=== PATIENT | male | born 1960 | race American Indian/Alaskan Native ===

== ENCOUNTER 2017-09-06 13:24 | Emergency (ER) | payer OTHER ==
[2017-09-06 13:25] VITALS: BMI 22.8
[2017-09-06 13:40] VITALS: RESP 20
--- NOTE | 2017-09-06 14:25 | C.PDOC ---
History Of Present Illness 57 y/o male presenting with L upper epigastric pain for 3 days. He reports that the pain starts in the L side and radiates to the R. He reports that it is a wave like pain. He reports that he has previously had this pain and it is exacerbated by drinking. Admits to drink today. Denies shortness of breath, fever. cough, uri symptoms. Reports nausea, but denies diarrhea or abdominal pain. No palpitations, diaphoresis, lower leg swelling. Time Seen by Provider: 09/06/17 14:18 Chief Complaint (Nursing): Chest Pain History Per: Patient History/Exam Limitations: no limitations Onset/Duration Of Symptoms: Days (3) Current Symptoms Are (Timing): Still Present Severity: Mild Quality: "Pain" Recent travel outside of the [place]: No Additional History Per: Patient Past Medical History Reviewed: Historical Data, Nursing Documentation, Vital Signs Vital Signs: Last Vital Signs Temp 97.9 F 09/06/17 16:12 Pulse 84 09/06/17 16:12 Resp 20 09/06/17 16:12 BP 162/94 H 09/06/17 16:12 Pulse Ox 100 09/06/17 16:12 - Medical History PMH: Depression, HTN, Malignancy (LEFT LUNG), Peripheral Edema Denies: Chronic Kidney Disease Surgical History: - [facility] Procedures ALCOHOL DETOXIFICATION (09/25/13) CLOSED [PERCUTANEOUS] [NEEDLE] BIOPSY OF LUNG (04/30/14) INSERTION OF TOTALLY IMPLANTABLE VASC ACCESS DEVIC (08/19/14) OTHER LOBECTOMY OF LUNG (06/17/14) SIMP EXC LYMPH STRUC NEC (06/17/14) Family History: States: Unknown Family Hx - Social History Hx Tobacco Use: Yes Hx Alcohol Use: Yes Hx Substance Use: No - Immunization History Hx Tetanus Toxoid Vaccination: No Hx Influenza Vaccination: No Hx Pneumococcal Vaccination: Yes Review Of Systems Except As Marked, All Systems Reviewed And Found Negative. Constitutional: Negative for: Fever, Chills, Sweats Cardiovascular: Negative for: Palpitations Respiratory: Negative for: Cough, Shortness of Breath, SOB with Excertion, Wheezing Gastrointestinal: Positive for: Nausea, Abdominal Pain (upper L epigastric). Negative for: Vomiting, Diarrhea, Constipation Genitourinary: Negative for: Dysuria, Frequency, Incontinence, Hematuria, Penile Discharge Musculoskeletal: Negative for: Neck Pain, Back Pain, Leg Pain, Foot Pain Skin: Negative for: Rash Neurological: Negative for: Weakness, Numbness, Altered Mental Status Psych: Negative for: Anxiety Physical Exam - Physical Exam Appears: Well, Non-toxic, No Acute Distress Skin: Warm, Dry, No Rash Head: Atraumatic, Normacephalic Eye(s): bilateral: Normal Inspection, PERRL, EOMI Oral Mucosa: Moist Neck: Supple Chest: Symmetrical Cardiovascular: Rhythm Regular, No Murmur Respiratory: Normal Breath Sounds, No Rales, No Rhonchi, No Wheezing Gastrointestinal/Abdominal: Soft, No Tenderness Back: No CVA Tenderness Extremity: Normal ROM (x4), No Pedal Edema Neurological/Psych: Oriented x3 ED Course And Treatment - Laboratory Results Result Diagrams: 09/06/17 14:53 09/06/17 14:53 ECG: Interpreted By Me, Viewed By Me ECG Rhythm: Sinus Rhythm ECG Interpretation: Normal Interpretation Of ECG: No ST wave changes Rate From EC O2 Sat by Pulse Oximetry: 98 (RA) Pulse Ox Interpretation: Normal Medical Decision Making Medical Decision Making: Patient has normal physical exam. He is AAox3 but admits to alcohol use today. Plans: * ECG * Blood labs * CXR * Aspirin EKG shows NSR at 90bpm with normal intervals and no ST changes 3:58PM Cxray negative. Trop x 1 negative. Patient was ordered Mag as his Mag was low. He reports that he has home Mg replacement and did not take it today. He reports that he will go home and take it immediately. He reports that he does not want to stay in ED. Pain has been intermittent x 3 days and was associated with nausea. It is atypical and he reports that he will follow-up with PMD. Disposition - Disposition Disposition: HOME/ ROUTINE Disposition Time: 15:58 Condition: GOOD Additional Instructions: Follow-up with PMD within 2 days. Return to ED if condition worsens. Forms: [employer] [facility] (Palestinian) - Clinical Impression Clinical Impression: Chest pain - Scribe Statement The provider has reviewed the documentation as recorded by the Scribe Chase diego All medical record entries made by the Scribe were at my direction and personally dictated by me. I have reviewed the chart and agree that the record accurately reflects my personal performance of the history, physical exam, medical decision making, and the department course for this patient. I have also personally directed, reviewed, and agree with the discharge instructions and disposition.
[2017-09-06 14:58] LABS: BASO % 0.5 % (0.0-2.0); EOS # 0.1 K/uL (0.0-0.7); EOS % 0.8 % (0.0-4.0); HEMATOCRIT 39.8 % (35.0-51.0); LYMPH # 2.3 K/uL (1.0-4.3); MEAN CELL VOLUME 108.5 fL (80.0-94.0); MEAN CORPUSCULAR HEMOGLOBIN 36.4 pg (27.0-31.0); MEAN CORPUSCULAR HGB CONC 33.6 g/dL (33.0-37.0); MEAN PLATELET VOLUME 7.6 fL (7.2-11.7); MONO # 0.6 K/uL (0.0-0.8); MONO % 7.2 % (0.0-10.0); NRBC % 0.1 % (0.0-2.0); RED CELL DISTRIBUTION WIDTH 14.3 % (11.5-14.5); WHITE BLOOD COUNT 8.3 K/uL (4.8-10.8)
[2017-09-06 15:06] LABS: CHLORIDE 104 mmol/L (98-107); SODIUM 139 mmol/L (132-148)
[2017-09-06 15:07] LABS: POTASSIUM 3.8 mmol/L (3.6-5.2)
[2017-09-06 15:09] LABS: ALKALINE PHOSPHATASE 83 U/L (38-126); ALT/SGPT 54 U/L (21-72); AST/SGOT 73 U/L (17-59); BILIRUBIN,TOTAL 0.6 mg/dL (0.2-1.3); BLOOD UREA NITROGEN 13 mg/dL (9-20); CARBON DIOXIDE 22 mmol/L (22-30); GFR AFRICAN-AMERICAN > 60; GLUCOSE,RANDOM 95 mg/dL (75-110); PHOSPHOROUS 3.2 mg/dL (2.5-4.5); TOTAL PROTEIN 8.3 g/dL (6.3-8.3)
[2017-09-06 15:10] LABS: CALCIUM 9.2 mg/dl (8.6-10.4); MAGNESIUM 1.1 mg/dL (1.6-2.3)
[2017-09-06] MEDS ORDERED: Magnesium Sulfate 1 gm in D5W 1 GM/100 ML BAG IVPB ONE (15:11)
--- NOTE | 2017-09-06 16:12 | RAD ---
HISTORY: chest pain COMPARISON: 07/14/2016 TECHNIQUE: Chest PA and lateral FINDINGS: LUNGS: No active pulmonary disease. PLEURA: No significant pleural effusion identified. No pneumothorax apparent. CARDIOVASCULAR: Normal heart size. Left central venous infusion port. No congestive change. OSSEOUS STRUCTURES: No significant abnormalities. VISUALIZED UPPER ABDOMEN: Normal. OTHER FINDINGS: None. IMPRESSION: No active disease.
[2017-09-06 16:13] VITALS: BP 162/94; PULSE 84; TEMP 97.9
[2017-09-06 16:29] VITALS: O2SAT 98
--- NOTE | 2017-09-08 16:48 | CARD ---
APPROVED REPORT EKG Measurement Heart [id number] <Conclusion> Normal sinus rhythm Normal Electrocardiogram
== END 2017-09-06 16:22 | disposition home or self-care (01) ==
LOC: C.ER 13:24
DX: R07.9 Chest pain, unspecified (principal)

== ENCOUNTER 2017-11-15 11:00 | Inpatient (IN) | payer MEDICAID, OTHER ==
[2017-11-15 11:00] VITALS: BMI 22.8
--- NOTE | 2017-11-15 11:50 | C.PDOC ---
History Of Present Illness 57 y/o male with PMHx of lung cancer presents to ED requesting ETOH detox and with complains of constipation "for a few days". Patient states he had surgery in the past and reports he still smokes. Patient denies fever, chills, sob, abdominal pain, back pain or any other complaints at this time. Time Seen by Provider: 11/15/17 11:29 Chief Complaint (Nursing): Substance Abuse History Per: Patient History/Exam Limitations: no limitations Onset/Duration Of Symptoms: Days Current Symptoms Are (Timing): Still Present Suicide/Self Injury Attempted (Context): None Modifying Factor(s): Alcohol Past Medical History Reviewed: Historical Data, Nursing Documentation, Vital Signs Vital Signs: Last Vital Signs Temp 98.8 F 11/15/17 14:13 Pulse 104 H 11/15/17 14:13 Resp 18 11/15/17 14:13 BP 101/65 11/15/17 14:13 Pulse Ox 97 11/15/17 14:13 - Medical History PMH: Depression, HTN, Malignancy (LEFT LUNG), Peripheral Edema Surgical History: Other Surgeries: lung surgery - [facility] Procedures ALCOHOL DETOXIFICATION (09/25/13) CLOSED [PERCUTANEOUS] [NEEDLE] BIOPSY OF LUNG (04/30/14) INSERTION OF TOTALLY IMPLANTABLE VASC ACCESS DEVIC (08/19/14) OTHER LOBECTOMY OF LUNG (06/17/14) SIMP EXC LYMPH STRUC NEC (06/17/14) Family History: States: No Known Family Hx - Social History Hx Tobacco Use: Yes Hx Alcohol Use: Yes Hx Substance Use: Yes - Immunization History Hx Tetanus Toxoid Vaccination: No Hx Influenza Vaccination: No Hx Pneumococcal Vaccination: Yes (2014) Review Of Systems Constitutional: Negative for: Fever, Chills Cardiovascular: Negative for: Chest Pain Respiratory: Negative for: Shortness of Breath Gastrointestinal: Positive for: Constipation. Negative for: Nausea, Vomiting Musculoskeletal: Negative for: Back Pain Skin: Negative for: Rash Physical Exam - Physical Exam Appears: Non-toxic, No Acute Distress Skin: Normal Color, Warm, Dry, No Rash Head: Atraumatic, Normacephalic Oral Mucosa: Moist Neck: Normal ROM, Supple Cardiovascular: Rhythm Regular Respiratory: Normal Breath Sounds, No Rales, No Rhonchi, No Wheezing Gastrointestinal/Abdominal: Soft, No Tenderness, No Guarding, No Rebound Extremity: Normal ROM, Capillary Refill (<2 seconds) Neurological/Psych: Oriented x3 Gait: Steady ED Course And Treatment - Laboratory Results Result Diagrams: 11/15/17 11:49 11/15/17 11:49 Lab Interpretation: Normal O2 Sat by Pulse Oximetry: 100 (RA) Pulse Ox Interpretation: Normal Progress Note: Case discussed and patient evaluated by automotive tire worker who discussed with refrigeration installer psych. Patient in no distress, last drink this am Reassessment Condition: Unchanged - Physician Consult Information Physician Contacted: Dionne Reese Outcome Of Conversation: admit Medical Decision Making Medical Decision Making: Plan: Blood work, UA Spoke to crisis, will evaluate patient at bedside Disposition Discussed With Dr.: Dionne Reese Doctor Will See Patient In The: Hospital - Disposition Disposition: HOSPITALIZED Disposition Time: 14:00 Condition: STABLE Forms: [facility] (Polish) - POA Present On Arrival: None - Clinical Impression Clinical Impression: Alcohol dependence - PA / MARINE PILOT / Resident Statement MD/DO has reviewed & agrees with the documentation as recorded. - Scribe Statement The provider has reviewed the documentation as recorded by the Scribnestor Hathaway All medical record entries made by the Kemiibnestor were at my direction and personally dictated by me. I have reviewed the chart and agree that the record accurately reflects my personal performance of the history, physical exam, medical decision making, and the department course for this patient. I have also personally directed, reviewed, and agree with the discharge instructions and disposition. Decision To Admit - Pt Status Changed To: Hospital Disposition Of: Inpatient - Admit Certification Admit to Inpatient:: After my assessment, the patient will require hospitalization for at least two midnights. This is because of the severity of symptoms shown, intensity of services needed, and/or the medical risk in this patient being treated as an outpatient. - InPatient: Physician Admission Certification: I certify that this patient requires 2 or more midnights of care for the following reason:: alcohol dependence - . Bed Request Type: Detox Admitting Physician: Dionne Reese Patient Diagnosis: Alcohol dependence
[2017-11-15 11:52] LABS: BASO # 0.1 K/uL (0.0-0.2); EOS # 0.1 K/uL (0.0-0.7); HEMOGLOBIN 13.8 g/dL (12.0-18.0); LYMPH # 2.1 K/uL (1.0-4.3); LYMPH % 24.2 % (20.0-40.0); MEAN CORPUSCULAR HEMOGLOBIN 38.6 pg (27.0-31.0); MEAN CORPUSCULAR HGB CONC 34.6 g/dL (33.0-37.0); MONO # 0.7 K/uL (0.0-0.8); MONO % 7.5 % (0.0-10.0); NEUT # 5.8 K/uL (1.8-7.0); NEUT % 66.3 % (50.0-75.0); NRBC % 0.1 % (0.0-2.0); RBC 3.58 Mil/uL (4.40-5.90); RED CELL DISTRIBUTION WIDTH 14.3 % (11.5-14.5); WHITE BLOOD COUNT 8.7 K/uL (4.8-10.8)
[2017-11-15 11:54] LABS: MEAN CELL VOLUME 111.6 fL (80.0-94.0)
[2017-11-15 12:06] LABS: ALB/GLOB RATIO 1.4 (1.0-2.1); ALT/SGPT 55 U/L (21-72); AST/SGOT 92 U/L (17-59); BLOOD UREA NITROGEN 11 mg/dL (9-20); CALCIUM 7.5 mg/dl (8.6-10.4); GFR AFRICAN-AMERICAN > 60; GFR NON-AFRICAN AMERICAN 57
[2017-11-15 12:06] LABS: SQUAMOUS EPITHIAL < 1 /hpf (0-5); URINE BILIRUBIN NEGATIVE (NEGATIVE); URINE BLOOD NEGATIVE (NEGATIVE); URINE CLARITY Clear (Clear); URINE COLOR Yellow (YELLOW); URINE GLUCOSE (UA) 1+ mg/dL (Normal); URINE LEUKOCYTE ESTERASE NEG Leu/uL (Negative); URINE NITRATE NEGATIVE (NEGATIVE); URINE PROTEIN 2+ mg/dL (NEGATIVE); URINE UROBILINOGEN NORMAL mg/dL (0.2-1.0)
[2017-11-15 12:31] LABS: BARBITURATES, UR NEGATIVE (NEGATIVE); BENZODIAZEPINES, UR NEGATIVE (NEGATIVE); OPIATES, UR NEGATIVE (NEGATIVE); PHENCYCLIDINE, UR NEGATIVE (NEGATIVE)
--- NOTE | 2017-11-15 15:13 | PCM.BM ---
<J CarlosNichelleBarbara F - Last Filed: 11/15/17 15:11> Treatment Plan Problems - Problems identified on initial assessmt Alcohol use disorder Date Initiated: 11/15/17 Time Initiated: 15:00 Assessment reference: NA Status: Active Treatment assets and liabiliti Patient Assests: adapts well, cooperative, ADL independent Patient Liabilities: substance abuse, medical problems - Milieu Protocol Maintain good personal hygiene: daily Encourage regular showers, daily Remind patient to perform daily oral care, daily Assist patient to perform ADL's, every shift Encourage regular showers, every shift Remind patient to perform daily oral care, every shift Assist patient to perform ADL's Maintain personal safety: daily Educate patient to report safety concerns to staff, daily Monitor environment for contraband/sharps, every shift Educate patient to report safety concerns to staff, every shift Monitor environment for contraband/sharps Medication safety: Monitor for expected outcome, potential side effects: daily, every shift, Assess barriers to learning: daily, every shift, Assess readiness for medication education: daily, every shift <Charisma Lind - Last Filed: 11/16/17 13:39> Family Contact Family involvement: Family/SO is involved Family contact: Patient agrees to contact, Telephone contact initiated by staff Family contact name: Yumiko/girlfriend Family contacted how many times per week?: 3 - Goals for Treatment Patient goals for treatment: Complete detox and resume psychiatric care at [facility]. Discharge/Continuing Care - Education Needs Education Needs: Patient Medication, Patient Diagnosis/Disease Process, Patient Coping Skills, Patient Anger Management skills, Patient Placement options, Patient Community resources, Patient Activities of Daily Living - Discharge Discharge Criteria: No longer exhibiting s/s of withdrawal, Reduction of target symptoms Discharge to:: Home, With Family - Treatment Team Participation Patient/Family/SO Statement: 11/16/17 13:40 "I wanna go back to Dr. Hood. I was there 2 years ago but he really helped me. " Discussed with Family/SO: No Was Patient/Family/SO present at Treatment Team Meeting: Yes <Dionne Reese - Last Filed: 11/17/17 14:36> - Diagnosis (1) Alcohol dependence Status: Acute Interventions: 11/17/17 14:36 * Assess 7x/week regarding severity of withdrawal * Educate regarding risks, benefits, side effects and alternatives of medications * Use Motivational Interviewing for abstinence * Use CBT for relapse prevention * Medication management for withdrawal symptoms * Encourage medication assisted treatment *
[2017-11-15] MEDS: Multiple Vitamins Tab PO SCH (17:14)
[2017-11-16] MEDS: Multiple Vitamins Tab PO SCH (09:33)
[2017-11-16] MEDS ORDERED: Potassium Chloride 20 mEq ER Tab PO ONE (10:30)
[2017-11-16] MEDS: Magnesium Oxide 400 mg Tab UD PO SCH (11:26)
[2017-11-16] MEDS: Calcium Carbonate 500 mg Chewable Antacid Tab PO SCH ×2 (11:27→17:35)
--- NOTE | 2017-11-16 12:23 | PCM.PSYCH ---
Initial Psychiatric Evaluation - Initial Psychiatric Evaluation Type of Admission: Voluntary Legal Status: Capacity Chief Complaint (in patient's own words): "Alcohol!" History of Present Illness and Precipitating Events: The patient is seen, chart reviewed and case discussed. This is a 57-year-old -Emir[place] male, with one child who is an adult. The patient lives with his girlfriend who has no child in a social drinker. The patient is currently unemployed but he is on SSI because he had a lung cancer and had a surgery to 3 years ago. The patient is here for alcohol detox and he drinks up to 2 pints a day for the past 10 years at least he says. This is his third detox and he was in rehabilitation 1 time in [facility]. Other than rehabilitation, his longest sobriety was only 4 months. He never had seizures or DTs. He smokes up to one pack per day cigarettes even though he is a lung cancer survivor and lost one of his lungs. He also smokes marijuana occasionally. He denies other drugs He reports mild depressive and anxiety symptoms and he was use to go to [facility] and gets therapy and medications that. Past psych history: Outpatient treatment at [facility]. No admissions no suicide attempts. Family psych history: Denies Medical history: High blood pressure and cancer. Current Medications: Active Medications Generic Name Dose Route Start Last Admin Trade Name Freq PRN Reason Stop Dose Admin Albuterol 1 puff 11/15/17 20:15 Ventolin Hfa 90 Mcg/Actuation (8 G) INH RQ4 PRN SOB Amlodipine Besylate 5 mg 11/16/17 10:00 11/16/17 09:33 Norvasc PO 5 mg DAILY SARANYA Administration Calcium Carbonate 500 mg 11/16/17 10:30 11/16/17 11:27 Tums PO 500 mg BID SARANYA Administration Chlordiazepoxide 25 mg 11/15/17 18:00 11/16/17 11:30 Librium PO 11/19/17 17:59 25 mg Q6 SARANYA Administration Taper Chlordiazepoxide 25 mg 11/15/17 16:09 Librium PO Q4H PRN Alcohol Withdrawal Clonidine HCl 0.1 mg 11/15/17 16:09 Catapres PO Q4H PRN Symptoms of alcohol withdrawl Escitalopram Oxalate 5 mg 11/16/17 10:30 11/16/17 11:27 Lexapro PO 5 mg DAILY SARANYA Administration Folic Acid 1 mg 11/15/17 16:15 11/16/17 09:33 Folic Acid PO 1 mg DAILY SARANYA Administration Gabapentin 300 mg 11/15/17 18:00 11/16/17 09:33 Neurontin PO 300 mg TID SARANYA Administration Hydrochlorothiazide 25 mg 11/16/17 10:00 11/16/17 09:33 Hydrodiuril PO 25 mg DAILY SARANYA Administration Hydroxyzine HCl 50 mg 11/15/17 20:15 Atarax PO Q6H PRN Anxiety Magnesium Oxide 400 mg 11/16/17 10:45 11/16/17 11:26 Mag-Ox PO 400 mg DAILY SARANYA Administration Multivitamins 1 tab 11/15/17 16:15 11/16/17 09:33 Hexavitamin PO 1 tab DAILY SARANYA Administration Pneumococcal Polyvalent Vaccine 0.5 ml 11/18/17 10:00 Pneumovax 23 Vaccine IM 11/18/17 10:01 .ONCE ONE Thiamine HCl 100 mg 11/15/17 16:15 11/16/17 09:33 Vitamin B1 Tab PO 100 mg DAILY SARANYA Administration Trazodone HCl 100 mg 11/16/17 22:00 Desyrel PO HS PRN Insomnia Past Psychiatric History - Past Psychiatric History Previous Treatment History: Intensive Outpatient Pertinent Medical Hx (Current Medical&Sleep Prob, Allergies): Allergies Allergy/AdvReac Type Severity Reaction Status Date / Time cephalexin Allergy Severe ITCHING Verified 11/15/17 11:22 Albuterol HFA [Ventolin HFA 90 mcg/actuation (8 g)] 0.09 mg IH DAILY 06/15/16 Benazepril HCl 20 mg PO BID 06/15/16 Fluticasone Propionate [Flonase Allergy Relief] 50 mcg NS DAILY 06/15/16 Trazodone HCl 50 mg PO DAILY 06/15/16 amLODIPine [Norvasc] 5 mg PO DAILY 06/15/16 Hydrocodone/Acetaminophen [Hydrocodon-Acetaminophen 5-325] 1 each PO Q6 PRN #12 tablet 08/09/16 Folic Acid 1 mg PO DAILY 11/15/17 Lactulose 2 tbs PO DAILY 11/15/17 Magnesium Oxide [Mag-Ox] 400 mg PO DAILY 11/15/17 Omeprazole 40 mg PO DAILY 11/15/17 hydroCHLOROthiazide [Hydrodiuril] 25 mg PO DAILY 11/15/17 Review of Systems - Neurological Neurological: UNREMARKABLE - Psychiatric Psychiatric: Abnormal Sleep Pattern, Anxiety, Difficulty Concentrating. absent : Hallucinations, Homicidal Ideation, Paranoia, Suicidal Ideation Mental Status Examination - Personal Presentation Personal Presentation: Looks stated age - Affect Affect: Constricted - Motor Activity Motor Activity: Calm - Reliability in Providing Information Reliability in Providing Information: Good - Speech Speech: Organized - Mood Mood: Depressed, Anxious - Formal Thought Process Formal Thought Process: No Impairment - Cognitive Functions Orientation: Person, Place, Situation, Time Sensorium: Alert Attention/Concentration: Attentive Estimate of Intelligence: Average Judgement: Intact, as evidence by: Insight regarding need for hospitalization Memory: Recent intact, as evidence by: Ability to recall events of the day, Remote intact, as evidenced by: Abilit to recall sig. life events - Risk Risk: Withdrawal, Diminished functioning - Strength & Assets Inventory Strength & Assets Inventory: Cooperative - Limitations Limitations: Other DSM 5 DX - DSM 5 DSM 5 Diagnosis: Alcohol withdrawal Alcohol use d/o - severe Major depressive d/o - recurrent, moderate Anxiety d/o - unspecified Tobacco use d/o -severe cannabis use d/o - mild - Recommended/Plan of Treatment Treatment Recommendations and Plan of Treatment: Librium detox Gabapentin for augmentation Lexapro for depressive sxs As needed medications All risks, benefits and alternatives of the meds discussed, and the pt agreed and understood. Attend groups and activities Supportive therapy and psychoeducation [place] for abstinence CBT for relapse prevention Encourage MAT Refer to rehab or IOP, and self-help groups Smoking cessation with [place] Nicotine patch 34 min Projected ELOS: 4-5 days Prognosis: Good w treatment - Smoking Cessation Smoking Cessation Initiated: Yes
[2017-11-16] MEDS: Albuterol HFA 90 mcg/actuation (8 g) INH PRN (23:34)
[2017-11-17 08:21] LABS: ALB/GLOB RATIO 1.2 (1.0-2.1); ALBUMIN 3.4 g/dL (3.5-5.0); ALT/SGPT 42 U/L (21-72); AST/SGOT 68 U/L (17-59); BLOOD UREA NITROGEN 22 mg/dL (9-20); CALCIUM 8.1 mg/dl (8.6-10.4); GFR AFRICAN-AMERICAN > 60; GFR NON-AFRICAN AMERICAN 52; LIPASE 400 U/L (23-300); MAGNESIUM 1.3 mg/dL (1.6-2.3)
[2017-11-17] MEDS: Magnesium Oxide 400 mg Tab UD PO SCH (10:35)
[2017-11-17] MEDS: Calcium Carbonate 500 mg Chewable Antacid Tab PO SCH ×2 (10:35→17:14)
[2017-11-17] MEDS: Multiple Vitamins Tab PO SCH (10:41)
--- NOTE | 2017-11-17 12:51 | PCM.PYCHPN ---
Psychiatric Progress Note - Psychiatric Progress Note Patient seen today, length of contact: 16 min Patient Chief Complaint: "Better today" Problems Identified/Issues Discussed: The pt is seen, chart reviewed, case discussed with staff. The pt is compliant with medications and reports no side-effects. Symptoms are improving but needs more time to stabilize. After care discussed, support and psychoeducation given. Medication Change: Yes (detox changes daily) Medical Record Reviewed: Yes Mental Status Examination - Cognitive Function Orientation: Person, Place, Situation, Time Memory: Intact Attention: WNL Concentration: Poor Association: WNL Fund of Knowledge: WNL - Mood Mood: Depressed, Anxious - Affect Affect: Constricted - Speech Speech: Appropriate - Formal Thought Process Formal Thought Process: No Impairment - Suicidal Ideation Suicidal Ideation: No - Homicidal Ideation Homicidal Ideation: No Goal/Treatment Plan - Goal/Treatment Plan Need for Continued Stay: Discharge may exacerbated symptoms, Severe functional impairment Progress Toward Problem(s) and Goals/Treatment Plan: Librium detox Gabapentin for augmentation Lexapro for depressive sxs As needed medications All risks, benefits and alternatives of the meds discussed, and the pt agreed and understood. Attend groups and activities Supportive therapy and psychoeducation [place] for abstinence CBT for relapse prevention Encourage MAT Refer to rehab or IOP, and self-help groups Smoking cessation with [place] Nicotine patch
[2017-11-17] MEDS: Albuterol HFA 90 mcg/actuation (8 g) INH PRN (21:13)
[2017-11-18 08:48] LABS: ALB/GLOB RATIO 1.2 (1.0-2.1); ALBUMIN 3.8 g/dL (3.5-5.0); CALCIUM 9.1 mg/dl (8.6-10.4); MAGNESIUM 1.4 mg/dL (1.6-2.3)
[2017-11-18] MEDS: Multiple Vitamins Tab PO SCH (09:52)
[2017-11-18] MEDS: Magnesium Oxide 400 mg Tab UD PO SCH (09:54)
[2017-11-18] MEDS: Calcium Carbonate 500 mg Chewable Antacid Tab PO SCH ×2 (09:55→17:34)
[2017-11-18] MEDS ORDERED: Pneumococcal 23-Valent Vaccine IM ONE (10:00)
[2017-11-18] MEDS ORDERED: Influenza Vaccine 60 mcg/0.5 mL SYR (4YR UP) IM ONE (10:00)
--- NOTE | 2017-11-18 10:13 | PCM.PYCHPN ---
Psychiatric Progress Note - Psychiatric Progress Note Patient seen today, length of contact: 16 min Patient Chief Complaint: I am still withdrawing.' Problems Identified/Issues Discussed: Patient seen and evaluated, chart reviewed and discussed with the nurse. The patient reports improvement in his mood and reports improvement in withdrawal symptoms. He still reports anxiety, headaches and sweating. As per the nurse patient is improving. He denies any suicidal ideation or homicidal ideation. Patient is taking medications and denies any side effects. Symptoms are improving but needs more time for stabilization. Supportive therapy and psychoeducation were given. Medication Change: Yes (detox changes daily) Medical Record Reviewed: Yes Mental Status Examination - Cognitive Function Orientation: Person, Place, Situation, Time Memory: Intact Attention: WNL Concentration: Poor Association: WNL Fund of Knowledge: WNL - Mood Mood: Depressed, Anxious - Affect Affect: Constricted - Speech Speech: Appropriate - Formal Thought Process Formal Thought Process: No Impairment - Suicidal Ideation Suicidal Ideation: No - Homicidal Ideation Homicidal Ideation: No Goal/Treatment Plan - Goal/Treatment Plan Need for Continued Stay: Discharge may exacerbated symptoms, Severe functional impairment Progress Toward Problem(s) and Goals/Treatment Plan: Alcohol withdrawal Alcohol use d/o - severe Major depressive d/o - recurrent, moderate Anxiety d/o - unspecified Tobacco use d/o -severe cannabis use d/o - mild Librium detox Gabapentin for augmentation Lexapro for depressive sxs As needed medications All risks, benefits and alternatives of the meds discussed, and the pt agreed and understood. Attend groups and activities Supportive therapy and psychoeducation [place] for abstinence CBT for relapse prevention Encourage MAT Refer to rehab or IOP, and self-help groups Smoking cessation with [place] Nicotine patch - Smoking Cessation Smoking Cessation Initiated: Yes
[2017-11-18] MEDS: Albuterol HFA 90 mcg/actuation (8 g) INH PRN (21:43)
[2017-11-19] MEDS: Multiple Vitamins Tab PO SCH (09:44)
[2017-11-19] MEDS: Magnesium Oxide 400 mg Tab UD PO SCH (09:45)
[2017-11-19] MEDS: Calcium Carbonate 500 mg Chewable Antacid Tab PO SCH ×2 (09:46→17:43)
[2017-11-19] MEDS: Albuterol HFA 90 mcg/actuation (8 g) INH PRN ×2 (09:50→21:06)
--- NOTE | 2017-11-19 12:29 | PCM.PYCHPN ---
Psychiatric Progress Note - Psychiatric Progress Note Patient seen today, length of contact: 16 min Patient Chief Complaint: I am still withdrawing.' Problems Identified/Issues Discussed: Patient seen and evaluated, chart reviewed and discussed with the nurse. The patient reports improvement in his mood and reports improvement in withdrawal symptoms. He still reports anxiety, headaches and sweating. As per the nurse patient is improving. He denies any suicidal ideation or homicidal ideation. Patient is taking medications and denies any side effects. Symptoms are improving but needs more time for stabilization. Supportive therapy and psychoeducation were given. Medication Change: Yes (detox changes daily, start remeron) Medical Record Reviewed: Yes Mental Status Examination - Cognitive Function Orientation: Person, Place, Situation, Time Memory: Intact Attention: WNL Concentration: Poor Association: WNL Fund of Knowledge: WNL - Mood Mood: Depressed, Anxious - Affect Affect: Constricted - Speech Speech: Appropriate - Formal Thought Process Formal Thought Process: No Impairment - Suicidal Ideation Suicidal Ideation: No - Homicidal Ideation Homicidal Ideation: No Goal/Treatment Plan - Goal/Treatment Plan Need for Continued Stay: Discharge may exacerbated symptoms, Severe functional impairment Progress Toward Problem(s) and Goals/Treatment Plan: Alcohol withdrawal Alcohol use d/o - severe Major depressive d/o - recurrent, moderate Anxiety d/o - unspecified Tobacco use d/o -severe cannabis use d/o - mild Librium detox Start Remeron 15 mg PO Daily Gabapentin for augmentation Lexapro for depressive sxs As needed medications All risks, benefits and alternatives of the meds discussed, and the pt agreed and understood. Attend groups and activities Supportive therapy and psychoeducation [place] for abstinence CBT for relapse prevention Encourage MAT Refer to rehab or IOP, and self-help groups Smoking cessation with [place] Nicotine patch - Smoking Cessation Smoking Cessation Initiated: No
[2017-11-20] MEDS: Magnesium Oxide 400 mg Tab UD PO SCH (10:11)
[2017-11-20] MEDS: Calcium Carbonate 500 mg Chewable Antacid Tab PO SCH ×2 (10:11→17:06)
[2017-11-20] MEDS: Multiple Vitamins Tab PO SCH (10:12)
[2017-11-20 12:37] LABS: ALB/GLOB RATIO 1.2 (1.0-2.1); ALBUMIN 3.4 g/dL (3.5-5.0); CALCIUM 9.1 mg/dl (8.6-10.4); MAGNESIUM 1.4 mg/dL (1.6-2.3)
--- NOTE | 2017-11-20 13:22 | PCM.PYCHPN ---
Psychiatric Progress Note - Psychiatric Progress Note Patient seen today, length of contact: 16 min Patient Chief Complaint: "Tired" Problems Identified/Issues Discussed: The pt is seen, chart reviewed, case discussed with staff. Support given, CBT and [place] used briefly No new symptoms reported, except for fatigue His labs have worsened so internal medicine consulted. He has back pain and was taking Ibuprofen at times - d/c'ed Gabapentin was d/c'ed too He is encouraged to drink more water Improving slowly and needs more time No SEs from medications, risks discussed. After care discussed again. Medication Change: Yes (detox changes daily) Medical Record Reviewed: Yes Mental Status Examination - Cognitive Function Orientation: Person, Place, Situation, Time Memory: Intact Attention: WNL Concentration: Poor Association: WNL Fund of Knowledge: WNL - Mood Mood: Depressed, Anxious - Affect Affect: Constricted - Speech Speech: Appropriate - Formal Thought Process Formal Thought Process: No Impairment - Suicidal Ideation Suicidal Ideation: No - Homicidal Ideation Homicidal Ideation: No Goal/Treatment Plan - Goal/Treatment Plan Need for Continued Stay: Discharge may exacerbated symptoms, Severe functional impairment Progress Toward Problem(s) and Goals/Treatment Plan: Librium detox ending Lexapro for depressive sxs As needed medications denise stopped All risks, benefits and alternatives of the meds discussed, and the pt agreed and understood. Attend groups and activities Supportive therapy and psychoeducation [place] for abstinence CBT for relapse prevention Encourage MAT Refer to rehab or IOP, and self-help groups Smoking cessation with [place] Nicotine patch
[2017-11-20] MEDS ORDERED: Iohexol 240 (50 ml) PO ONE (16:45)
--- NOTE | 2017-11-20 16:56 | CP.PCM.CON ---
<Gianni Hylton - Last Filed: 11/20/17 18:35> History of Present Illness - History of Present Illness History of Present Illness: Medicine Consult note for Dr. Kelley Reason for consult: Increasing BUN/Creatinine and Amylase/Lipase This is a 57 year old male with PMHx lung cancer s/p resection and chemotherapy and hypertension who came to the hospital requesting detox from alcohol. Patient states that he will occasionally experience abdominal pain whenever he stops drinking but this is relieved with alcohol consumption. Eventually, patient decided to seek detox. His course in detox was uncomplicated except for increasing amylase, lipase, BUN, and creatinine. Patient denies abdominal pain, nausea, vomiting, constipation, diarrhea, change in stools, blood in stool. Patient states he is tolerating his diet well and bowel movements are normal. Patient's only complaints are generalized blurred vision, feels his head is foggy, and back pain worsened with prolonged standing and ambulation. Patient states that he was admitted to [facility] ago for kidney injury secondary to chemotherapy. His last chemotherapy session was about [address] Yuan. PMHx: lung cancer s/p resection (in June 2015) and chemotherapy, HTN PSHx: Resection of left lung cancer and lobectomy (per patient cancer was size of "grapefruit" Allergies: Cephalexin: Rxn is intense itching Social: Admits to drinking minimum 1 pint of cognac daily for last ten years. Current smoker since age 15. Used to smoke 2-3 ppd until cancer diagnosis. Then he dropped to 1/2-1 ppd after that. Denies drugs. 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 Family Hx: Father of multiple myeloma at age 68. PMD: Dr. Bryant Murray Home meds: As per EMR Review of Systems - Constitutional Constitutional: absent: Chills, Fever - EENT Eyes: Blurred Vision. absent: Other Visual Disturbances Nose/Mouth/Throat: absent: Nasal Congestion - Cardiovascular Cardiovascular: absent: Chest Pain - Respiratory Respiratory: absent: Dyspnea - Gastrointestinal Gastrointestinal: absent: Abdominal Pain, Constipation, Diarrhea, Nausea, Vomiting - Genitourinary Genitourinary: absent: Dysuria - Musculoskeletal Musculoskeletal: Back Pain - Integumentary Integumentary: absent: Rash - Neurological Neurological: Other (difficulty ambulating secondary to low back pain). absent : Weakness - Psychiatric Psychiatric: absent: Anxiety - Endocrine Endocrine: absent: Fatigue, Palpitations Past Patient History - Past Medical History & Family History Past Medical History?: Yes - Past Social History Smoking Status: Current Some Days Smoker - CARDIAC Hx Hypertension: Yes Hx Peripheral Edema: Yes - PULMONARY Hx Respiratory Disorders: Yes Hx Lung Cancer: Yes (hx lobectomy LT SIDE) - HEENT Hx HEENT Problems: Yes Other/Comment: SEASONAL ALLERGIES - RENAL Hx Chronic Kidney Disease: No - ENDOCRINE/METABOLIC Hx Endocrine Disorders: No - INTEGUMENTARY Hx Dermatological Problems: No - MUSCULOSKELETAL/RHEUMATOLOGICAL Hx Musculoskeletal Disorders: Yes Hx Falls: No Hx Osteoarthritis: Yes (KNEES, RIGHT SHOULDER) - PSYCHIATRIC Hx Substance Use: No - SURGICAL HISTORY Hx Surgeries: Yes Hx Pulmonary Surgery: Yes (left thoracotomy) Hx Vascular Access Device: Yes (portacath insertion right chest) Other/Comment: LUNG BX RECTAL ABSCESS 1990 CHEMO DONE - ANESTHESIA Hx Anesthesia: Yes Hx Anesthesia Reactions: No Hx Malignant Hyperthermia: No Meds Allergies/Adverse Reactions: Allergies Allergy/AdvReac Type Severity Reaction Status Date / Time cephalexin Allergy Severe ITCHING Verified 11/15/17 11:22 - Medications Medications: Current Medications Albuterol (Ventolin Hfa 90 Mcg/Actuation (8 G)) 1 puff INH RQ4 PRN PRN Reason: SOB Last Admin: 11/19/17 21:06 Dose: 1 puff Amlodipine Besylate (Norvasc) 5 mg PO DAILY [facility] Last Admin: 11/20/17 10:11 Dose: 5 mg Calcium Carbonate (Tums) 500 mg PO BID [facility] Last Admin: 11/20/17 10:11 Dose: 500 mg Chlordiazepoxide (Librium) 25 mg PO Q4H PRN PRN Reason: Alcohol Withdrawal Clonidine HCl (Catapres) 0.1 mg PO Q4H PRN PRN Reason: Symptoms of alcohol withdrawl Escitalopram Oxalate (Lexapro) 10 mg PO DAILY [facility] Last Admin: 11/20/17 10:11 Dose: 10 mg Folic Acid (Folic Acid) 1 mg PO DAILY [facility] Last Admin: 11/20/17 10:12 Dose: 1 mg Hydrochlorothiazide (Hydrodiuril) 25 mg PO DAILY [facility] Last Admin: 01/15/18 10:11 Dose: 25 mg Hydroxyzine HCl (Atarax) 50 mg PO Q6H PRN PRN Reason: Anxiety Magnesium Oxide (Mag-Ox) 400 mg PO DAILY [facility] Last Admin: 11/20/17 10:11 Dose: 400 mg Mirtazapine (Remeron) 15 mg PO HS [facility] Last Admin: 11/19/17 21:06 Dose: 15 mg Multivitamins (Hexavitamin) 1 tab PO DAILY [facility] Last Admin: 11/20/17 10:12 Dose: 1 tab Nicotine (Nicoderm Cq) 1 patch TD DAILY [facility] Last Admin: 11/20/17 10:12 Dose: 1 patch Thiamine HCl (Vitamin B1 Tab) 100 mg PO DAILY [facility] Last Admin: 11/20/17 10:11 Dose: 100 mg Trazodone HCl (Desyrel) 100 mg PO HS PRN PRN Reason: Insomnia Last Admin: 11/19/17 21:06 Dose: 100 mg Physical Exam - Constitutional Appears: No Acute Distress - Head Exam Head Exam: ATRAUMATIC, NORMOCEPHALIC - Eye Exam Eye Exam: EOMI, PERRL - ENT Exam ENT Exam: Mucous Membranes Moist - Respiratory Exam Respiratory Exam: Decreased Breath Sounds (left lung field), Clear to Auscultation Bilateral, NORMAL BREATHING PATTERN. absent: Rales, Rhonchi, Wheezes Additional comments: surgical scars on left lateral thorax - Cardiovascular Exam Cardiovascular Exam: REGULAR RHYTHM, +S1, +S2 - GI/Abdominal Exam GI & Abdominal Exam: Distended, Normal Bowel Sounds, Soft. absent: Guarding, Tenderness - Extremities Exam Extremities exam: Positive for: pedal pulses present. Negative for: pedal edema - Neurological Exam Neurological exam: Alert, CN II-XII Intact, Oriented x3 - Psychiatric Exam Psychiatric exam: Normal Affect, Normal Mood - Skin Skin Exam: Dry, Warm Results - Vital Signs Recent Vital Signs: Last Vital Signs Temp 98.1 F 11/20/17 16:10 Pulse 89 11/20/17 16:10 Resp 20 11/20/17 16:10 BP 108/73 11/20/17 16:10 Pulse Ox 98 11/20/17 16:10 - Labs Result Diagrams: 11/15/17 11:49 11/20/17 12:14 Labs: Laboratory Results - last 24 hr 11/20/17 12:14 Sodium 132 Potassium 4.5 Chloride 102 Carbon Dioxide 25 Anion Gap 9 L BUN 31 H Creatinine 1.7 H Est GFR ( Amer) 50 Est GFR (Non-Af Amer) 42 Random Glucose 127 H Calcium 9.1 Magnesium 1.4 L Total Bilirubin 0.4 AST 109 H ALT 70 Alkaline Phosphatase 87 Total Protein 6.2 L Albumin 3.4 L Globulin 2.8 Albumin/Globulin Ratio 1.2 Amylase 221 H Lipase 517 H Assessment & Plan - Assessment and Plan (Free Text) Plan: Alcohol Detox Management as per Psychiatry Patient on Librium taper which can explain slowly rising LFTs History of Hypertension Held home HCTZ as this can contribute to worsening renal function Elevated Amylase/Lipase Patient does not appear to have acute pancreatitis based on history and clinical exam. Per radiology, PO contrast recommended. CT abdomen/pelvis with PO contrast ordered to rule out chronic pancreatitis. F/ u result Will recheck levels in the morning labs Elevated BUN/Creatinine Patient instructed to consume 2-3 liters of fluids for now. Will recheck in the morning labs Case DW Dr. Warren Hylton PGY-1 <Priscilla Kelley - Last Filed: 11/21/17 17:43> Results - Vital Signs Recent Vital Signs: Last Vital Signs Temp 98.3 F 11/21/17 09:00 Pulse 79 11/21/17 09:00 Resp 18 11/21/17 09:00 BP 133/84 11/21/17 09:00 Pulse Ox 99 11/21/17 09:00 - Labs Result Diagrams: 11/21/17 07:22 11/21/17 07:22 Labs: Laboratory Results - last 24 hr 11/21/17 11/21/17 07:22 07:22 WBC 7.6 RBC 3.05 L Hgb 11.7 L D Hct 34.6 L MCV 113.5 H MCH 38.6 H MCHC 34.0 RDW 14.3 Plt Count 182 MPV 9.4 Neut % (Auto) 69.3 Lymph % (Auto) 17.1 L [place] % (Auto) 11.5 H Eos % (Auto) 1.6 Baso % (Auto) 0.5 Neut # 5.3 Lymph # 1.3 [place] # 0.9 H Eos # 0.1 Baso # 0.0 Sodium 134 Potassium 5.0 Chloride 104 Carbon Dioxide 22 Anion Gap 13 BUN 26 H Creatinine 1.4 Est GFR ( Amer) > 60 Est GFR (Non-Af Amer) 52 Random Glucose 103 Calcium 9.4 Total Bilirubin 0.4 AST 102 H ALT 81 H Alkaline Phosphatase 92 Total Protein 6.6 Albumin 3.5 Globulin 3.1 Albumin/Globulin Ratio 1.1 Amylase 209 H Lipase 406 H Attending/Attestation - Attestation I have personally seen and examined this patient.: Yes I have fully participated in the care of the patient.: Yes I have reviewed all pertinent clinical information: Yes Notes (Text): patient was seen and examined. discussed with the resident He agreed to increase his fluid intake as recommended follow creatinine patient wasnt to go home tomorrow Asked to follow his primary care physician and increase his water intake We will sign off if his creatinine improves
--- NOTE | 2017-11-20 20:01 | CT ---
EXAM: CT Abdomen and Pelvis With Intravenous Contrast EXAM DATE/TIME: Exam ordered 11/20/2017 4:35 PM CLINICAL HISTORY: 57 years old, male; Abnormal findings; Abnormal lab test; Elevated amylase and elevated lipase; Additional info: Elevated amylase, lipase. R/O pancreatitis TECHNIQUE: Axial computed tomography images of the abdomen and pelvis with intravenous contrast. All CT scans at this facility use one or more dose reduction techniques, viz.: automated exposure control; ma/kV adjustment per patient size (including targeted exams where dose is matched to indication; i.e. head); or iterative reconstruction technique. Coronal and sagittal reformatted images were created and reviewed. CONTRAST: 100 mL of visipaque 320 administered intravenously. COMPARISON: No relevant prior studies available. FINDINGS: Lower thorax: Paraseptal type emphysema is seen at the left lung base. Discoid atelectasis or scar is seen in the left lower lobe the liver is low in density. ABDOMEN: Liver:A 1.6 cm low density lesion is seen in the anterosuperior segment of the right lobe of the liver with a density measuring up to 3 H. Gallbladder and bile ducts: Unremarkable. No calcified stones. No ductal dilation. Pancreas: Unremarkable. No mass. No ductal dilation. Spleen: Unremarkable. No splenomegaly. Adrenals: Unremarkable. No mass. Kidneys and ureters: A 1.3 cm lesion in projects off the midportion left kidney laterally with a density measurement of 23H No hydronephrosis. Stomach and bowel: There are scattered colonic diverticula. No obstruction. No mucosal thickening. Appendix: No findings to suggest acute appendicitis. PELVIS: Bladder: Unremarkable. No mass. Reproductive: Unremarkable as visualized. ABDOMEN and PELVIS: Intraperitoneal space: Unremarkable. No free air. No significant fluid collection. Bones/joints: No acute fracture. No dislocation. Soft tissues: Hazy and density is noted within the mesenteric fat Vasculature: Unremarkable. No abdominal aortic aneurysm. Lymph nodes: There is stranding of the fat in the yonatan hepatis. Lymph nodes are noted within the lesser sac. The largest measures 2.4 x 1.3 x or 1 cm. IMPRESSION: 1. Stranding of the mesenteric fat extending superiorly into the yonatan hepatis. The findings could be consistent with a mild pancreatitis. Mesenteric adenitis is another consideration. 2. Scattered colonic diverticula. 3. Hepatic steatosis 4. Low-density liver lesion. This was mentioned on the CT scan dated . Those films are not available for comparison. 5. Hyperdense left renal mass not fully characterized without contrast. Comparison with old films suggested. Alternatively ultrasound might be helpful.
[2017-11-20] MEDS: Albuterol HFA 90 mcg/actuation (8 g) INH PRN (21:24)
[2017-11-20 21:33] VITALS: RESP 18
[2017-11-21 07:39] LABS: BASO % 0.5 % (0.0-2.0); EOS # 0.1 K/uL (0.0-0.7); EOS % 1.6 % (0.0-4.0); LYMPH # 1.3 K/uL (1.0-4.3); LYMPH % 17.1 % (20.0-40.0); MEAN CELL VOLUME 113.5 fL (80.0-94.0); MEAN CORPUSCULAR HEMOGLOBIN 38.6 pg (27.0-31.0); MEAN PLATELET VOLUME 9.4 fL (7.2-11.7); MONO # 0.9 K/uL (0.0-0.8); MONO % 11.5 % (0.0-10.0); NEUT # 5.3 K/uL (1.8-7.0); NEUT % 69.3 % (50.0-75.0); RBC 3.05 Mil/uL (4.40-5.90); RED CELL DISTRIBUTION WIDTH 14.3 % (11.5-14.5); WHITE BLOOD COUNT 7.6 K/uL (4.8-10.8)
[2017-11-21 07:50] LABS: LIPASE 406 U/L (23-300)
--- NOTE | 2017-11-21 07:51 | CP.PCM.PN ---
<Gianni Hylton - Last Filed: 11/21/17 13:07> Subjective - Date & Time of Evaluation Date of Evaluation: 11/21/17 Time of Evaluation: 09:00 - Subjective Subjective: Medicine progress note for Dr. Kelley Patient seen and examined. Patient reports no acute complaints except for feeling tired. He tolerated diet and oral hydration well. Objective - Vital Signs/Intake and Output Vital Signs (last 24 hours): Temp Pulse Resp BP Pulse Ox 98.0 F 83 18 121/80 97 11/21/17 06:29 11/21/17 06:29 11/21/17 06:29 11/21/17 06:29 11/21/17 06:29 - Medications Medications: Current Medications Albuterol (Ventolin Hfa 90 Mcg/Actuation (8 G)) 1 puff INH RQ4 PRN PRN Reason: SOB Last Admin: 11/20/17 21:24 Dose: 1 puff Amlodipine Besylate (Norvasc) 5 mg PO DAILY [facility] Last Admin: 11/20/17 10:11 Dose: 5 mg Calcium Carbonate (Tums) 500 mg PO BID [facility] Last Admin: 11/20/17 17:06 Dose: 500 mg Chlordiazepoxide (Librium) 25 mg PO Q4H PRN PRN Reason: Alcohol Withdrawal Clonidine HCl (Catapres) 0.1 mg PO Q4H PRN PRN Reason: Symptoms of alcohol withdrawl Escitalopram Oxalate (Lexapro) 10 mg PO DAILY [facility] Last Admin: 11/20/17 10:11 Dose: 10 mg Folic Acid (Folic Acid) 1 mg PO DAILY [facility] Last Admin: 11/20/17 10:12 Dose: 1 mg Hydrochlorothiazide (Hydrodiuril) 25 mg PO DAILY [facility] Last Admin: 11/20/17 10:11 Dose: 25 mg Hydroxyzine HCl (Atarax) 50 mg PO Q6H PRN PRN Reason: Anxiety Magnesium Oxide (Mag-Ox) 400 mg PO DAILY [facility] Last Admin: 11/20/17 10:11 Dose: 400 mg Mirtazapine (Remeron) 15 mg PO HS [facility] Last Admin: 11/20/17 21:23 Dose: 15 mg Multivitamins (Hexavitamin) 1 tab PO DAILY [facility] Last Admin: 11/20/17 10:12 Dose: 1 tab Nicotine (Nicoderm Cq) 1 patch TD DAILY [facility] Last Admin: 11/20/17 10:12 Dose: 1 patch Thiamine HCl (Vitamin B1 Tab) 100 mg PO DAILY [facility] Last Admin: 11/20/17 10:11 Dose: 100 mg Trazodone HCl (Desyrel) 100 mg PO HS PRN PRN Reason: Insomnia Last Admin: 11/20/17 21:23 Dose: 100 mg - Labs Labs: 11/15/17 11:49 - Additional Findings Additional findings: - Constitutional Appears: No Acute Distress - Head Exam Head Exam: ATRAUMATIC, NORMOCEPHALIC - Eye Exam Eye Exam: EOMI, PERRL - ENT Exam ENT Exam: Mucous Membranes Moist - Respiratory Exam Respiratory Exam: Decreased Breath Sounds (left lung field), Clear to Auscultation Bilateral, NORMAL BREATHING PATTERN. absent: Rales, Rhonchi, Wheezes Additional comments: surgical scars on left lateral thorax - Cardiovascular Exam Cardiovascular Exam: REGULAR RHYTHM, +S1, +S2 - GI/Abdominal Exam GI & Abdominal Exam: Distended, Normal Bowel Sounds, Soft. absent: Guarding, Tenderness - Extremities Exam Extremities exam: Positive for: pedal pulses present. Negative for: pedal edema - Neurological Exam Neurological exam: Alert, CN II-XII Intact, Oriented x3 - Psychiatric Exam Psychiatric exam: Normal Affect, Normal Mood - Skin Skin Exam: Dry, Warm Assessment and Plan - Assessment and Plan (Free Text) Plan: Alcohol Detox Management as per Psychiatry Patient on Librium taper which can explain slowly rising LFTs History of Hypertension Held home HCTZ as this can contribute to worsening renal function Elevated Amylase/Lipase Patient does not appear to have acute pancreatitis based on history and clinical exam. Per radiology, PO contrast recommended. CT abdomen/pelvis with PO contrast: * 1. Stranding of the mesenteric fat extending superiorly into the yonatan hepatis. The findings could be consistent with a mild pancreatitis. Mesenteric adenitis is another consideration.--addendum of CT reveals this is unchanged from prior scan * 2. Scattered colonic diverticula. * 3. Hepatic steatosis * 4. Low-density liver lesion. This was mentioned on the CT scan dated 2011. Those films are not available for comparison. * 5. Hyperdense left renal mass not fully characterized without contrast. Amylase and Lipase downtrending Elevated BUN/Creatinine Patient instructed to consume 2-3 liters of fluids for now. Downtrending with oral hydration Disposition: Patient is set for discharge today per psychiatry. CT scan showed chronic pathologies without evidence of acute pancreatitis. Patient was instructed to follow up his abnormal labs with his primary Dr. Murray within the next 2-3 days and to maintain adequate hydration. Patient verbalized understanding and stated that he can get an appointment to be seen soon. HCTZ to be held until he sees Dr. Murray. Abnormal lab studies to be followed up on were typed out and given to the patient. Patient also instructed for outpatient follow up on his renal lesion as well with his primary. Case DW Dr. Warren Hylton PGY-1 <Priscilla Kelley - Last Filed: 11/21/17 17:45> Objective - Vital Signs/Intake and Output Vital Signs (last 24 hours): Temp Pulse Resp BP Pulse Ox 98.3 F 79 18 133/84 99 11/21/17 09:00 11/21/17 09:00 11/21/17 09:00 11/21/17 09:00 11/21/17 09:00 - Labs Labs: 11/21/17 07:22 11/21/17 07:22 Attending/Attestation - Attestation I have personally seen and examined this patient.: Yes I have fully participated in the care of the patient.: Yes I have reviewed all pertinent clinical information, including history, physical exam and plan: Yes Notes (Text): His creatinine improved with water intake,amylase and lipase is trending down.we will sign off recommend to follow his primary care physician
[2017-11-21 08:08] LABS: ALB/GLOB RATIO 1.1 (1.0-2.1); ALBUMIN 3.5 g/dL (3.5-5.0); ALT/SGPT 81 U/L (21-72); AMYLASE 209 U/L (30-110); AST/SGOT 102 U/L (17-59); BLOOD UREA NITROGEN 26 mg/dL (9-20); CALCIUM 9.4 mg/dl (8.6-10.4); GFR AFRICAN-AMERICAN > 60; GFR NON-AFRICAN AMERICAN 52
[2017-11-21 08:19] LABS: HEMOGLOBIN 11.7 g/dL (12.0-18.0)
[2017-11-21] MEDS: Magnesium Oxide 400 mg Tab UD PO SCH (10:06)
[2017-11-21] MEDS: Multiple Vitamins Tab PO SCH (10:06)
[2017-11-21] MEDS: Calcium Carbonate 500 mg Chewable Antacid Tab PO SCH (10:07)
--- NOTE | 2017-11-21 10:21 | PCM.PYCHDC ---
Mental Status Examination - Mental Status Examination Orientation: Person Discharge Summary - Discharge Note Laboratory Data: Abnormal Lab Results 11/20/17 11/21/17 11/21/17 12:14 07:22 07:22 WBC 7.6 RBC 3.05 L Hgb 11.7 L D Hct 34.6 L MCV 113.5 H MCH 38.6 H MCHC 34.0 RDW 14.3 Plt Count 182 MPV 9.4 Neut % (Auto) 69.3 Lymph % (Auto) 17.1 L [place] % (Auto) 11.5 H Eos % (Auto) 1.6 Baso % (Auto) 0.5 Neut # 5.3 Lymph # 1.3 [place] # 0.9 H Eos # 0.1 Baso # 0.0 Sodium 132 134 Potassium 4.5 5.0 Chloride 102 104 Carbon Dioxide 25 22 Anion Gap 9 L 13 BUN 31 H 26 H Creatinine 1.7 H 1.4 Est GFR ( Amer) 50 > 60 Est GFR (Non-Af Amer) 42 52 Random Glucose 127 H 103 Calcium 9.1 9.4 Magnesium 1.4 L Total Bilirubin 0.4 0.4 AST 109 H 102 H ALT 70 81 H Alkaline Phosphatase 87 92 Total Protein 6.2 L 6.6 Albumin 3.4 L 3.5 Globulin 2.8 3.1 Albumin/Globulin Ratio 1.2 1.1 Amylase 221 H 209 H Lipase 517 H 406 H Consultations:: List each consultation separately and include: 1. Reason for request. 2. Findings. 3. Follow-up Summary of Hospital Course include:: 1. Description of specific treatment plan utilized for patients during their course of treatmen. 2. Summarize the time- course for resolution of acute symptoms and/or regressed behaviors. 3. Describe issues identified and worked on during hospitalization. 4. Describe medication utilized. 5. Describe medical problems identified and treated. 6. Reassessment of suicide risk Summary of Hospital Course: The patient is seen, chart reviewed and case discussed. This is a 57-year-old -[place] male, with one child who is an adult. The patient lives with his girlfriend who has no child in a social drinker. The patient is currently unemployed but he is on SSI because he had a lung cancer and had a surgery to 3 years ago. The patient is here for alcohol detox and he drinks up to 2 pints a day for the past 10 years at least he says. This is his third detox and he was in rehabilitation 1 [place]. Other than rehabilitation, his longest sobriety was only 4 months. He never had seizures or DTs. He smokes up to one pack per day cigarettes even though he is a lung cancer survivor and lost one of his lungs. He also smokes marijuana occasionally. He denies other drugs He reports mild depressive and anxiety symptoms and he was use to go to [facility] and gets therapy and medications that. Past psych history: Outpatient treatment at [facility]. No admissions no suicide attempts. Family psych history: Denies Medical history: High blood pressure and cancer. - Diagnosis (1) Alcohol dependence Current Visit: Yes Status: Acute - Final Diagnosis (DSM 5) Condition upon Discharge: STABLE Disposition: HOME/ ROUTINE Follow-up Treatment Plan: Librium detox ending Lexapro for depressive sxs As needed medications denise stopped All risks, benefits and alternatives of the meds discussed, and the pt agreed and understood. Attend groups and activities Supportive therapy and psychoeducation [place] for abstinence CBT for relapse prevention Encourage MAT Refer to rehab or IOP, and self-help groups Smoking cessation with [place] Nicotine patch
[2017-11-21 11:12] VITALS: BP 133/84; PULSE 79; TEMP 98.3; O2SAT 99
== END 2017-11-21 11:45 | disposition home or self-care (01) | DRG 750 ==
LOC: C.ER 11:00 → C.7D 13:55
PROVIDERS: ADMIT Psychiatry & Neurology Psychiatry; ATTEND Psychiatry & Neurology Psychiatry
PROC: HZ2ZZZZ Detoxification Services for Substance Abuse Treatment (ICD-10-PCS; principal; 2017-11-16)
PROC: HZ42ZZZ Group Counseling for Substance Abuse Treatment, Cognitive-Behavioral (ICD-10-PCS; 2017-11-16)
PROC: HZ52ZZZ Individual Psychotherapy for Substance Abuse Treatment, Cognitive-Behavioral (ICD-10-PCS; 2017-11-16)
PROC: HZ59ZZZ Individual Psychotherapy for Substance Abuse Treatment, Supportive (ICD-10-PCS; 2017-11-16)
PROC: HZ56ZZZ Individual Psychotherapy for Substance Abuse Treatment, Psychoeducation (ICD-10-PCS; 2017-11-16)
PROC: HZ46ZZZ Group Counseling for Substance Abuse Treatment, Psychoeducation (ICD-10-PCS; 2017-11-16)
DX: F10.230 Alcohol dependence with withdrawal, uncomplicated (principal); F33.1 Major depressive disorder, recurrent, moderate; F17.210 Nicotine dependence, cigarettes, uncomplicated; Y90.6 Blood alcohol level of 120-199 mg/100 ml; Z85.118 Personal history of other malignant neoplasm of bronchus and lung; F41.9 Anxiety disorder, unspecified; F12.90 Cannabis use, unspecified, uncomplicated; I10 Essential (primary) hypertension; M17.9 Osteoarthritis of knee, unspecified; M19.011 Primary osteoarthritis, right shoulder